=== PATIENT | female | born 1970 | race Caucasian/White ===

== ENCOUNTER → 2022-03-23 09:28 | Outpatient (CLI) | payer SELFPAY ==
--- NOTE | ~2022-03-23 | XR_ITS ---
EXAMINATION:XR cervical spine 4-5V DATE: 03/23/2022 09:56 INDICATION: Neck pain TECHNIQUE: AP, lateral in neutral, flexion, and extension, lateral swimmers and odontoid views of the cervical spine are provided. COMPARISON: None FINDINGS: Alignment is normal. There is no laxity with flexion or extension. The odontoid is intact. No fracture is identified. The vertebral body heights are normal. There is mild loss of intervertebra l disc space height at C5-6. Prevertebral soft tissues are normal. IMPRESSION: 1. Mild cervical spondylosis without acute findings. Reviewed, dictated and finalized at location A.
== END ==
PROVIDERS: PCP Chiropractor; Visit Provider Chiropractor
DX: M47.892 Other spondylosis, cervical region (principal)
CPT/HCPCS: 72050